=== PATIENT | male | born 1930 | race Caucasian/White ===

== ENCOUNTER 2016-09-07 08:35 | Day surgery (SDC) | payer OTHER ==
[2016-09-06 16:33] VITALS: BMI 27.9
[2016-09-07 09:18] VITALS: TEMP 97.5
[2016-09-07] MEDS ORDERED: LEVOFLOXACIN 500 MG PREMIX BAG IVPB ONE (10:37)
--- NOTE | 2016-09-07 11:08 | OP ---
Operative Note - Note: Operative Date: 09/07/16 Pre-Operative Diagnosis: right renal calculus Operation: Right ESWL Post-Operative Diagnosis: Same as Pre-op Surgeon: Reji Iraheta MD. Anesthesia: General Operative Report Dictated: Yes
[2016-09-07 16:26] VITALS: BP 130/82; PULSE 65
--- NOTE | 2016-10-22 09:28 | OP ---
DATE OF OPERATION: 09/07/2016 PREOPERATIVE DIAGNOSIS: Left renal calculus. POSTOPERATIVE DIAGNOSIS: Left renal calculus. PROCEDURE: Left extracorporeal shock wave lithotripsy. HISTORY: This is a very pleasant 84-year-old gentleman with a history of recurrent renal calculi. Preoperative imaging showed increasing size of calculi as well as prior recurrent urinary tract infections. treatment options including observation. Patient wanted to undergo the above stated procedure. Risks, benefits, and treatemtn alternatives were discussed with the patient in detail. All questions were answered. BRIEF OPERATIVE NOTE: Patient was brought into the operating suite, and with fluoroscopy and ultrasonography the stone was visualized well. Approximately 2500 shocks were delivered in fashion. At this time, the stone appeared to fragment radiographically. The patient tolerated procedure well and delivered to recovery room in stable and satisfactory condition. RASHIDA VAZ M.D. AGNES/[id number]
== END 2016-09-07 14:30 | disposition home or self-care (01) ==
LOC: JASU-SURG 08:35
PROVIDERS: ATTEND Urology
PROC: 0TF4XZZ Fragmentation in Left Kidney Pelvis, External Approach (ICD-10-PCS; principal; 2016-09-07 10:00)
DX: N20.0 Calculus of kidney (principal)